=== PATIENT | female | born 1995 | race American Indian/Alaskan Native ===

== ENCOUNTER 2018-10-20 13:10 | Emergency (ER) | payer OTHER ==
--- NOTE | 2018-10-20 13:48 | Emergency Department Report ---
Blank Doc - Documentation Documentation: 22 y o female presents to Ed cc of rash on finger and lip swelling x friday cc of jaw and mouth pain [facility] eval
[2018-10-20] MEDS ORDERED: NORCO 10/325 PO ONE (14:35)
[2018-10-20] MEDS ORDERED: SOLU-Medrol IM ONE (14:35)
[2018-10-20] MEDS ORDERED: ZOFRAN ODT PO ONE (14:35)
[2018-10-20 14:58] LABS: Bilirubin,Urine NEG (Negative); Blood,Urine MOD (Negative); Color,Urine Yellow (Yellow); Mucus,Urine 3+ /HPF; Protein,Urine <15 mg/dL mg/dL (Negative); Urobilinogen,Urine < 2.0 mg/dL (<2.0)
--- NOTE | 2018-10-20 15:18 | Emergency Department Report ---
ED General Adult HPI - General Chief complaint: Pain General Stated complaint: SOB/BOTH LEGS NUMB/BODY PAIN/SWOLLEN FACE/LIPS Time Seen by Provider: 10/20/18 13:46 Source: patient Mode of arrival: Ambulatory Limitations: No Limitations - History of Present Illness Initial comments: Patient presents to the emergency department with a chief complaint of a rash that has erupted on her arms and face. 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 Patient states that the lesions are painful. Patient denies fever or neck stiffness. -: Gradual Severity scale (0 -10): 7 Consistency: constant Improves with: none Worsens with: none Associated Symptoms: denies other symptoms Treatments Prior to Arrival: none - Related Data Previous Rx's Medication Instructions Recorded Last Taken Type traMADol [Ultram] 50 mg PO Q6HR PRN #12 tablet 04/09/18 Unknown Rx Acetaminophen/Codeine [Tylenol 1 tab PO Q6H PRN #15 tab 10/20/18 Unknown Rx /Codeine # 3 tab] Neomycin/Polymyxin B/Hydrocort 1 applic TP TID #1 tube 10/20/18 Unknown Rx [Cortisporin TOPICAL Cream] Prednisone [predniSONE 10 mg 10 mg PO .TAPER #1 tab.ds.pk 10/20/18 Unknown Rx (6-Day Pack, 21 Tabs)] Allergies Allergy/AdvReac Type Severity Reaction Status Date / Time amoxicillin Allergy Shortness Verified 10/20/18 13:14 of Breath Penicillins Allergy Shortness Verified 10/20/18 13:14 of Breath ED Review of Systems ROS: Stated complaint: SOB/BOTH LEGS NUMB/BODY PAIN/SWOLLEN FACE/LIPS Other details as noted in HPI Comment: All other systems reviewed and negative Constitutional: denies: chills, fever Eyes: denies: eye pain, eye discharge, vision change ENT: denies: ear pain, throat pain Respiratory: denies: cough, shortness of breath, wheezing Cardiovascular: denies: chest pain, palpitations Endocrine: no symptoms reported Gastrointestinal: denies: abdominal pain, nausea, diarrhea Genitourinary: denies: urgency, dysuria, discharge Musculoskeletal: denies: back pain, joint swelling, arthralgia Skin: denies: rash, lesions Neurological: denies: headache, weakness, paresthesias Psychiatric: denies: anxiety, depression Hematological/Lymphatic: denies: easy bleeding, easy bruising ED Past Medical Hx - Past Medical History Previous Medical History?: No Additional medical history: arthyema multiform - Surgical History Additional Surgical History: tonsils - Social History Smoking Status: Never Smoker Substance Use Type: None - Medications Home Medications: Home Medications Medication Instructions Recorded Confirmed Last Taken Type traMADol [Ultram] 50 mg PO Q6HR PRN #12 tablet 04/09/18 Unknown Rx Acetaminophen/Codeine [Tylenol 1 tab PO Q6H PRN #15 tab 10/20/18 Unknown Rx /Codeine # 3 tab] Neomycin/Polymyxin B/Hydrocort 1 applic TP TID #1 tube 10/20/18 Unknown Rx [Cortisporin TOPICAL Cream] Prednisone [predniSONE 10 mg 10 mg PO .TAPER #1 tab.ds.pk 10/20/18 Unknown Rx (6-Day Pack, 21 Tabs)] ED Physical Exam - General Limitations: No Limitations General appearance: alert, in no apparent distress - Head Head exam: Present: atraumatic, normocephalic - Eye Eye exam: Present: normal appearance, PERRL, EOMI - ENT ENT exam: Present: mucous membranes moist - Neck Neck exam: Present: normal inspection - Respiratory Respiratory exam: Present: normal lung sounds bilaterally. Absent: respiratory distress - Cardiovascular Cardiovascular Exam: Present: regular rate, normal rhythm. Absent: systolic murmur, diastolic murmur, rubs, gallop - GI/Abdominal GI/Abdominal exam: Present: soft, normal bowel sounds. Absent: distended, tenderness - Extremities Exam Extremities exam: Present: normal inspection - Back Exam Back exam: Present: normal inspection - Neurological Exam Neurological exam: Present: alert, oriented X3, CN II-XII intact. Absent: motor sensory deficit - Psychiatric Psychiatric exam: Present: normal affect, normal mood - Skin Skin exam: Present: warm, dry, intact, normal color, rash (the patient has eruptive macules with distal target lesions not involving the oral mucosal) ED Course Vital Signs 10/20/18 13:46 Temperature 98.1 F Pulse Rate 102 H Respiratory 20 Rate Blood Pressure 132/87 [Right] O2 Sat by Pulse 99 Oximetry ED Medical Decision Making - Medical Decision Making Discussed plan of care with patient Critical care attestation.: If time is entered above; I have spent that time in minutes in the direct care of this critically ill patient, excluding procedure time. ED Disposition Clinical Impression: Erythema multiforme Disposition: DC-01 TO HOME OR SELFCARE Is pt being admited?: No Does the pt Need Aspirin: No Condition: Stable Additional Instructions: return if worse Erythema Multiforme PDF PDF Print page PRINT Comments COMMENTS SHARE ROSA KOCH M.D., LIBAN MCKEON M.D., and Maylin LEE M.D., PH.D., [facility] Physician. 2005May 02;74(97):[id number]. Erythema multiforme is a skin condition considered to be a hypersensitivity reaction to infections or drugs. It consists of a polymorphous eruption of macules, papules, and characteristic target lesions that are symmetrically distributed with a propensity for the distal extremities. There is minimal mucosal involvement. Management involves treating the existing infectious agent or discontinuing the causal drug. Mild cases resolve without sequelae and do not require treatment. Recurrent cases have been prevented with continuous acyclovir. Patients who have no response to acyclovir may have a response to valacyclovir or famciclovir, which have greater oral bioavailability and more convenient dosing. Patients with recurrent erythema multiforme despite suppressive antiviral therapy should be referred to a glass ribbon machine operator assistant for further treatment. Erythema multiforme is an acute, self-limited, and sometimes recurring skin condition considered to be a hypersensitivity reaction associated with certain infections and medications (Table 11,2).2,3 Previously, the condition was thought to be part of a clinical spectrum of disease that included erythema minor, erythema major (often equated with Ortiz-Abisai syndrome [SJS]), and toxic epidermal necrolysis (TEN), with erythema minor being the most mild and TEN the most severe.4 An often-cited study from 1992 proposed a useful clinical classification of erythema multiforme, SJS, and TEN based on the pattern of individual skin lesions and the estimation of body surface area with detachment of the epidermis (i.e., blisters, denuded areas, or erosions) at the worst stage of the disease (Table 21,2,5,6).5 Although SJS and TEN may represent the same process with differing severity,6 erythema multiforme, with its minimal mucous membrane involvement and less than 10 percent epidermal detachment, now is accepted as a distinct condition. The remainder of this article will focus on erythema multiforme. View/Print Table SORT: HEART RECOMMENDATIONS FOR PRACTICE CLINICAL RECOMMENDATION EVIDENCE RATING REFERENCES Oral acyclovir (Zovirax) should be given early in herpes-associated outbreaks of erythema multiforme to lessen the number and duration of lesions. B 29 Continuous acyclovir is recommended to prevent recurrent herpes-associated erythema multiforme. A 29,34,35 A = consistent, good-quality patient-oriented evidence; B = inconsistent or limited-quality patient-oriented evidence; C = consensus, disease-oriented evidence, usual practice, expert opinion, or case series. For information about the SORT evidence rating system, see page 1821 orhttps://www.aafp.org/afpsort.xml. View/Print Table TABLE 1 Causes of Erythema Multiforme Infections* Herpes simplex virus 1 and 2 Mycoplasma pneumoniae Fungal infections Medications Barbiturates Hydantoins Nonsteroidal anti-inflammatory drugs Penicillins Phenothiazines Sulfonamides *In order of incidence. Adapted with permission from Horace Chandra III. Oral manifestations of erythema multiforme. Dermatol Clin 2003;21:196, with additional information from reference 2. View/Print Table TABLE 2 Differential Features of Erythema Multiforme, SJS, and TEN CONDITION PATTERN OF SKIN LESIONS BODY SURFACE AREA WITH EPIDERMAL DETACHMENT (%) Erythema multiforme Typical targets, raised atypical targets, minimal mucous membrane involvement Less than 10 SJS No typical targets, flat atypical targets, confluent purpuric macules on the face and trunk, severe mucosal erosions at one or more mucosal sites Less than 10 Overlapping SJS and TEN No typical targets, flat atypical targets 10 to 30 TEN No typical targets, flat atypical targets; begins with severe mucosal erosions and progresses to diffuse, generalized detachment of the epidermis Greater than 30 SJS = Ortiz-Abisai syndrome; TEN = toxic epidermal necrolysis. Adapted with permission from Horace Chandra III. Oral manifestations of erythema multiforme. Dermatol Clin 2003;21:198, with additional information from references 2, 5, and 6. Etiology and Pathophysiology Erythema multiforme usually occurs in adults 20 to 40 years of age,6 although it can occur in patients of all ages.1 Herpes simplex virus (HSV) is the most commonly identified etiology of this hypersensitivity reaction, accounting for more than 50 percent of cases.1,3,710 Mycoplasma pneumoniae is another commonly reported etiology, especially in children, as is fungal infection.1,11,12 The medications most often associated with erythema multiforme are barbiturates, hydantoins, nonsteroidal anti-inflammatory drugs, penicillins, phenothiazines, and sulfonamides.2 In addition, there have been reports of erythema multiforme associated with vaccines (diphtheria-tetanus,13 hepatitis B,14 azgmiirc12), other viruses (varicella zoster virus,16 hepatitis C,17 cytomagalovirus,18,19 and human immunodeficiency virus20), and some newer medications (candesartan cilexetil [Atacand],21 rofecoxib [Vioxx; withdrawn from the [place] market],22 metformin [Glucophage],23 adalimumab [Humira],24 bupropion [Well-butrin],25 and ciprofloxacin [Cipro]26). Recurrent erythema multiforme often is secondary to HSV-1 and -2 reactivation, although the HSV may be clinically silent.10 In a study involving 63 patients with erythema multiforme, HSV DNA was detected (by polymerase chain reaction in skin biopsy specimens) in 60 percent of patients with clinically diagnosed recurrent herpes-associated erythema multiforme and in 50 percent of patients with recurrent idiopathic erythema multiforme (defined as erythema multiforme with no clinical history of HSV infection or drug ingestion).19 In another study, researchers determined the genotype of HSV in cutaneous lesions of patients with herpes-associated erythema multiforme; 66.7 percent of cases were attributed to HSV-1, 27.8 percent to HSV-2, and 5.6 percent to HSV-1 and -2 coinfection.27 These results ref lect the seroprevalence of HSV-1 and -2 in the [place].28 However, most patients with HSV infection do not develop erythema multiforme. In addition, patients with herpes-associated erythema multiforme may have clinically apparent HSV reactivation without an episode of erythema multiforme or erythema multiforme without clinically apparent HSV infection.10,29 The pathogenesis of herpes-associated erythema multiforme has been well studied and is consistent with a delayed-type hypersensitivity reaction.3,30 The disease begins with the transport of viral DNA fragments to distant skin sites by peripheral blood mononuclear cells. HSV genes within DNA fragments are expressed on keratinocytes, leading to the recruitment of HSV-specific CD4+ TH1 cells (helper T cells involved in cell-mediated immunity). The CD4+ cells respond to viral antigens with production of interferon-?, initiating an inflammatory cascade.3 Drug-associated erythema multiforme lesions test positive for tumor necrosis factor ? and not interferon-? as in herpes-associated erythema multiforme lesions, suggesting a varying mechanism.30 Clinical Presentation Erythema multiforme is a self-limited eruption that usually has mild or no prodromal symptoms.31 Patients may experience itching and burning at the site of the eruption.6 The individual lesions begin acutely as numerous sharply demarcated red or pink macules that then become papular (Figure 1).8,31 The papules may enlarge gradually into plaques several centimeters in diameter. The central portion of the papules or plaques gradually becomes darker red, brown, dusky, or purpuric. Crusting or blistering sometimes occurs in the center of the lesions. The characteristic target or iris lesion (Figures 2 through 4) has a regular round shape and three concentric zones: a central dusky or darker red area, a paler pink or edematous zone, and a peripheral red ring. Some target lesions have only two zones, the dusky or darker red center and a pink or field care coordinator red border.1,31 Target lesions may not be apparent until several days after the onset, when lesions of various clinical morphology usually are present, hence the name erythema multiforme.10 View/Print Figure Figure 1. The individual lesions of erythema multiforme begin acutely as numerous sharply demarcated red or pink macules that then become papular. View/Print Figure Figures 2 through 4. Examples of the characteristic target or iris lesions of erythema multiforme. The skin lesions of erythema multiforme usually appear symmetrically on the distal extremities and progress proximally.2 Lesions on the dorsal surfaces of the hands and extensor aspects of the extremities are most characteristic.8 Palms and soles also may be involved.6 Mucosal lesions may occur but usually are limited to the oral cavity.1 Erythema multiforme resolves spontaneously in three to five weeks without sequelae, but it may recur.3 Patients in whom it recurs may have multiple episodes per year. In a study involving 65 patients with recurrent erythema multiforme, the mean number of attacks per year was six, with a range of two to 24; the mean duration of the disease was 9.5 years.29 Diagnosis Erythema multiforme is diagnosed clinically. In patients who have target lesions with a preceding or coexisting HSV infection, the diagnosis can be made easily.31 Skin biopsy is not necessary when the clinical picture is clear because biopsy findings are not specific for erythema multiforme. In unclear cases, such as an atypical presentation or recurrent erythema multiforme without documented HSV infection, biopsy may help rule out other diagnoses. Laboratory tests (e.g., HSV-1 and -2, immunoglobulin M and G) may confirm a suspected history of HSV infection, but they are not required. Skin biopsy results vary depending on the clinical morphology and the duration of the lesions existence as well as the area of the lesion from which the specimen is obtained (i.e., the center portion or the outer zone).31 The early stage of the red macules and papules shows a perivascular mononuclear cell infiltrate.3 Biopsy of the edematous zone of the target lesion may show pronounced dermal edema histologically; necrotic keratinocytes or epidermal nur ges usually occur in the central portion of the target lesion.31,32 The differential diagnosis (Table 330,32) of early erythema multiforme includes drug eruption, polymorphic light eruption, urticaria, urticarial vasculitis, viral exanthems, and other hypersensitivity reactions.32 Because erythema multiforme often resembles urticaria at the onset of the eruption, it is important to distinguish the clinical features. The individual lesions of erythema multiforme in typical cases are present and fixed for at least one week, and some evolve into target lesions.33 In contrast, the individual lesions of urticaria exist at the same site for less than 24 hours,8 and the centers of the lesions appear normal or as red as the borders.6 Target lesions with dusky or purpuric centers may resemble pityriasis rosea, lupus erythematosus, vasculitis, or figurate erythema.32 When bullous lesions are present, erythema multiforme must be distinguished from the autoimmune bullous diseases.31 View/Print Table TABLE 3 Differential Diagnosis of Erythema Multiforme Autoimmune bullous diseases Drug eruption Figurate erythema Lupus erythematosus Pityriasis rosea Polymorphic light eruption Ortiz-Abisai syndrome Toxic epidermal necrolysis Urticaria Urticarial vasculitis Vasculitis Viral exanthems Other hypersensitivity reactions Information from references 30 and 32. Treatment Management of erythema multiforme involves determining the etiology when possible. The first step is to treat the suspected infectious disease or to discontinue the causal drug. Mild cases of erythema multiforme do not require treatment.6 Oral antihistamines and topical steroids may be used to provide symptom relief.8 In patients with coexisting or recent HSV infection, early treatment with oral acyclovir (Zovirax) may lessen the number and duration of cutaneous lesions.32,34 Topical acyclovir applied to preceding HSV lesions does not prevent herpes-associated erythema multiforme.10 Prednisone may be used in patients with many lesions at dosages of 40 to 80 mg per day for one to two weeks then tapered rapidly.6 However, its use is controversial.2 There have been no controlled studies of prednisones effectiveness, and its use in patients with herpes-associated erythema multiforme may lower the patients resistance to HSV and promote recurrent HSV infection followed by recurrent erythema multiforme.10 Recurrent erythema multiforme may be treated with continuous oral acyclovir (400 mg two times per day) even if HSV is not an obvious precipitating factor.6 Oral acyclovir has been shown to be effective in the suppression of recurrent erythema multiforme in a double-blind placebo-controlled trial.35 Valacyclovir (Valtrex; 500 to 1,000 mg per day) and famciclovir (Famvir; 125 to 250 mg per day) have greater oral bioavailability than acyclovir and may be tried in patients who have no response to acyclovir.4,36 The dosage of the antiviral may be reduced once the patient is recurrence free for four months, and eventually the drug may be discontinued. The dosage must be adjusted for patients with renal insufficiency. Patients with recurrent erythema multiforme despite the use of suppressive antiviral therapy should be referred to a glass ribbon machine operator assistant for further treatment. In such patients, dapsone (100 to 150 mg per day) has resulted in partial or complete suppression of erythema multiforme.29 Antimalarials (mepacrine [Atabrine; unavailable in the [place]] and hydroxychloroquine [Plaquenil]) also have been tried.6 Azathioprine (Imuran; 100 to 150 mg per day) has been used successfully in patients for whom other treatments have failed.29 Recurrent erythema multiforme also has been treated with cyclosporine (Sandimmune),37 and two patients with persistent erythema multiforme have been treated with thalidomide (Thalomid).38 Although these medications have shown benefit in some patients, the evidence to support their use for erythema multiforme is limited. The Authorsshow all author info ROSA KOCH M.D., is assistant store managerpastoral ministries professor at [employer] [facility] [employer], [place], [place]. Dr. Koch graduated from [employer], [place], [place] and completed a residency in family practice at the [facility].... REFERENCESshow all references 1. Analilia Baxter, Horace MARIA III. Oral manifestations of erythema multiforme. Dermatol Clin. 2003;21:909248.... 0 comments Sign In to comment Continue reading from May 02, 2006 Previous: Treatment of Oncologic Emergencies Next: The Role of BNP Testing in Heart Failure View the full table of contents >> Copyright 2006 by the [employer] [employer]. This content is owned by the AAFP. A person viewing it online may make one printout of the material and may use that printout only for his or her personal, non-commercial reference. This material may not otherwise be downloaded, copied, printed, stored, transmitted or reproduced in any medium, whether now known or later invented, except as authorized in writing by the AAFP. Contact for copyright questions and/or permission requests. Prescriptions: Neomycin/Polymyxin B/Hydrocort [Cortisporin TOPICAL Cream] 1 applic TP TID #1 tube Prednisone [predniSONE 10 mg (6-Day Pack, 21 Tabs)] 10 mg PO .TAPER #1 tab.ds.pk Referrals: [facility] [Other] - 3-5 Days [facility] [Provider Group] - 3-5 Days [facility] [Provider Group] - 3-5 Days [facility] [Outside] - 3-5 Days Time of Disposition: 15:20
[2018-10-20 15:32] VITALS: BP 131/84
== END 2018-10-20 15:30 | disposition home or self-care (01) ==
LOC: ED 13:10
DX: L51.9 Erythema multiforme, unspecified (principal); Z90.89 Acquired absence of other organs; Z79.899 Other long term (current) drug therapy; Z88.0 Allergy status to penicillin; Z88.1 Allergy status to other antibiotic agents
CPT/HCPCS: 81001; 96372; 99283; J2930; Q0162

== ENCOUNTER 2019-05-13 08:13 | Emergency (ER) | payer OTHER ==
[2019-05-13] MEDS ORDERED: ACETAMINOPEN W/CODEINE 120-12MG ORAL LIQD 5 ML PO ONE (09:58)
[2019-05-13] MEDS ORDERED: predniSONE 20 MG TAB PO ONE (10:03)
--- NOTE | 2019-05-13 10:39 | Emergency Department Report ---
<EDSON KILPATRICK - Last Filed: 06/07/19 14:00> ED General Adult HPI - General Chief complaint: Pain General Stated complaint: BODYACHES Time Seen by Provider: 05/13/19 09:24 Source: patient Mode of arrival: Ambulatory Limitations: No Limitations - History of Present Illness Initial comments: This 23-year-old female with a past medical history of erythema multiform who presents to ED complaining of body aches nausea 3 days. Patient states she's also been having some lower back pain for the past 2 days. Patient currently t akes medication for her EM keep from [place]. She denies fevers/chills/abdominal pain/shortness of breath/chest pain or any other problems. Severity scale (0 -10): 10 - Related Data Previous Rx's Medication Instructions Recorded Last Taken Type traMADoL [Ultram] 50 mg PO Q6HR PRN #12 tablet 04/09/18 Unknown Rx Acetaminophen/Codeine [Tylenol 1 tab PO Q6H PRN #15 tab 10/20/18 Unknown Rx /Codeine # 3 tab] Ibuprofen [Motrin] 800 mg PO Q8HR #30 tablet 05/13/19 Unknown Rx Neomycin/Polymyxin B/Hydrocort 1 applic TP TID #1 tube 05/13/19 Unknown Rx [Cortisporin TOPICAL Cream] Prednisone [predniSONE 10 mg 10 mg PO .TAPER #1 tab.ds.pk 05/13/19 Unknown Rx (6-Day Pack, 21 Tabs)] Allergies Allergy/AdvReac Type Severity Reaction Status Date / Time amoxicillin Allergy Shortness Verified 05/13/19 08:16 of Breath Penicillins Allergy Shortness Verified 05/13/19 08:16 of Breath ED Review of Systems Comment: All other systems reviewed and negative ED Past Medical Hx - Past Medical History Additional medical history: arthyema multiform - Surgical History Additional Surgical History: tonsils - Social History Smoking Status: Never Smoker Substance Use Type: None - Medications Home Medications: Home Medications Medication Instructions Recorded Confirmed Last Taken Type traMADoL [Ultram] 50 mg PO Q6HR PRN #12 tablet 04/09/18 Unknown Rx Acetaminophen/Codeine [Tylenol 1 tab PO Q6H PRN #15 tab 10/20/18 Unknown Rx /Codeine # 3 tab] Ibuprofen [Motrin] 800 mg PO Q8HR #30 tablet 05/13/19 Unknown Rx Neomycin/Polymyxin B/Hydrocort 1 applic TP TID #1 tube 05/13/19 Unknown Rx [Cortisporin TOPICAL Cream] Prednisone [predniSONE 10 mg 10 mg PO .TAPER #1 tab.ds.pk 05/13/19 Unknown Rx (6-Day Pack, 21 Tabs)] ED Physical Exam - General Limitations: No Limitations General appearance: alert, in no apparent distress - Head Head exam: Present: atraumatic, normocephalic - Eye Eye exam: Present: normal appearance - ENT ENT exam: Present: mucous membranes moist - Neck Neck exam: Present: normal inspection - Respiratory Respiratory exam: Present: normal lung sounds bilaterally. Absent: respiratory distress - Cardiovascular Cardiovascular Exam: Present: regular rate, normal rhythm. Absent: systolic murmur, diastolic murmur, rubs, gallop - GI/Abdominal GI/Abdominal exam: Present: soft, normal bowel sounds - Extremities Exam Extremities exam: Present: normal inspection, full ROM. Absent: tenderness - Back Exam Back exam: Present: normal inspection, full ROM, tenderness (palpation of the latissimus dorsi muscles). Absent: CVA tenderness (R) - Neurological Exam Neurological exam: Present: alert, oriented X3, CN II-XII intact, normal gait - Psychiatric Psychiatric exam: Present: normal affect, normal mood - Skin Skin exam: Present: warm, dry, intact, normal color, rash (from erythema multiforme, old rash not acute) ED Medical Decision Making - Medical Decision Making 23-year-old female presents with generalized body aches Urinalysis urine test was negative. I discussed the patient follow-up with primary care physician. Patient received prednisone in pain medication in the ED. Vital signs are normal she is in no acute distress or respiratory distress. ED Disposition Clinical Impression: Myalgia Disposition: [id number] TO HOME OR SELFCARE Is pt being admited?: No Does the pt Need Aspirin: No Condition: Stable Instructions: Muscle Strain (ED), Musculoskeletal Pain (ED) Additional Instructions: Make sure to follow up with the primary care physician as discussed. Take all your medications as you've been prescribed. If you have any worsening symptoms or develop new symptoms please return to ED immediately. Prescriptions: Neomycin/Polymyxin B/Hydrocort [Cortisporin TOPICAL Cream] 1 applic TP TID #1 t ube Ibuprofen [Motrin] 800 mg PO Q8HR #30 tablet Prednisone [predniSONE 10 mg (6-Day Pack, 21 Tabs)] 10 mg PO .TAPER #1 tab.ds.pk Referrals: OSCAR AMEZQUITA JR, MD [Primary Care Provider] - 3-5 Days [facility] [Outside] - 3-5 Days [facility] [Outside] - 3-5 Days Forms: Accompanied Note, Work/School Release Form(ED) Time of Disposition: 12:07 <DIOGO CONTRERAS P - Last Filed: 06/09/19 14:15> ED Review of Systems ROS: Stated complaint: BODYACHES Other details as noted in HPI ED Course Vital Signs 05/13/19 05/13/19 05/13/19 08:20 10:18 12:45 Temperature 98.9 F Pulse Rate 90 82 Respiratory 18 18 18 Rate Blood Pressure 141/63 Blood Pressure 122/80 [Right] O2 Sat by Pulse 98 98 99 Oximetry ED Medical Decision Making - Medical Decision Making Attestation: Available for consultation Critical care attestation.: If time is entered above; I have spent that time in minutes in the direct care of this critically ill patient, excluding procedure time. ED Disposition Is pt being admited?: No
[2019-05-13 10:44] LABS: Bilirubin,Urine NEG (Negative); Blood,Urine NEG (Negative); Color,Urine Yellow (Yellow); HCG Qualitative,Urine Negative (Negative); Mucus,Urine 3+ /HPF; Protein,Urine <15 mg/dL mg/dL (Negative); Urobilinogen,Urine < 2.0 mg/dL (<2.0)
[2019-05-13] MEDS ORDERED: ACETAMINOPHEN W/CODEINE 300-30 MG TAB PO ONE (12:33)
[2019-05-13 12:46] VITALS: BP 122/80
== END 2019-05-13 13:00 | disposition home or self-care (01) ==
LOC: ED 08:13
DX: S39.012A Strain of muscle, fascia and tendon of lower back, initial encounter (principal); Z90.89 Acquired absence of other organs; Z79.899 Other long term (current) drug therapy; X58.XXXA Exposure to other specified factors, initial encounter; Y93.89 Activity, other specified; Y92.89 Other specified places as the place of occurrence of the external cause; Y99.8 Other external cause status
CPT/HCPCS: 81001; 81025; 99283; J7512

== ENCOUNTER 2022-02-03 13:03 | Emergency (ER) | payer SELFPAY | END 2022-02-03 15:22 | disposition left against medical advice (07) | LOC: ED 13:03 | DX: R10.9 Unspecified abdominal pain (principal); Z53.21 Procedure and treatment not carried out due to patient leaving prior to being seen by health care provider ==